=== PATIENT | female | born 1945 | race Caucasian/White ===

== ENCOUNTER → 2017-03-27 | Outpatient (CLI) | payer OTHER, MEDICAID ==
[~2017-03-27] MED LIST: OMNIPAQUE 350 MG/ML, 100ML BOTTLE ONE
== END | disposition home or self-care (01) ==
LOC: CFH 11:31
PROVIDERS: ATTEND Internal Medicine
DX: I70.0 Atherosclerosis of aorta (principal); R10.10 Upper abdominal pain, unspecified
CPT/HCPCS: 74177; Q9967

== ENCOUNTER 2017-07-01 15:14 | Emergency (ER) | payer OTHER, MEDICAID ==
[~2017-07-01] VITALS: Ht 170.2 cm; Wt 79.0 kg
[2017-07-01] MEDS ORDERED: SODIUM CHLORIDE 0.9% 1,000 ML IV ONE (15:38)
[2017-07-01] MEDS ORDERED: MORPHINE SULFATE 4 MG/ML, 1ML ONE (15:53)
[2017-07-01] MEDS ORDERED: ONDANSETRON 2MG/ML, 2ML ONE (15:54)
[2017-07-01] MEDS ORDERED: ONDANSETRON 2MG/ML, 2ML IVPush ONE (16:00)
[2017-07-01] MEDS ORDERED: MORPHINE SULFATE 4 MG/ML, 1ML IVPush PRN (16:00)
[2017-07-01] MEDS ORDERED: SODIUM CHLORIDE FLUSH 10ML SYR IVF ONE (16:00)
[2017-07-01] MEDS ORDERED: SODIUM CHLORIDE 0.9% 1,000ML IVBOLUS ONE (16:00)
[2017-07-01 16:22] LABS: BASOPHILS # (AUTO) 0.02 x10^3/uL (0-0.1); BASOPHILS % (AUTO) 0 % (0-1); EOSINOPHILS # (AUTO) 0.24 x10^3/uL (0-0.4); EOSINOPHILS % (AUTO) 3 % (1-7); LYMPHOCYTES # (AUTO) 1.83 x10^3/uL (1-3.4); LYMPHOCYTES % (AUTO) 25 % (22-44); MD NO; MEAN CORPUSCULAR HEMOGLOBIN 30.8 pg (27.0-34.8); MEAN CORPUSCULAR HGB CONC 32.8 g/dL (32.4-35.8); MEAN CORPUSCULAR VOLUME 94.2 fL (80-100); MEAN PLATELET VOLUME 11.8 fL (7.4-10.4); MONOCYTES # (AUTO) 0.84 x10^3/uL (0.2-0.8); MONOCYTES % (AUTO) 11 % (2-9); NEUTROPHILS # (AUTO) 4.52 x10^3/uL (1.8-6.8); NEUTROPHILS % (AUTO) 61 % (42-75); PLATELET COUNT 183 x10^3/uL (130-400); RED BLOOD COUNT 4.92 x10^6/uL (3.82-5.3); RED CELL DISTRIBUTION WIDTH 15.4 % (9.6-15.2)
[2017-07-01 16:32] LABS: ALANINE AMINOTRANSFERASE 15 U/L (12-78); ALBUMIN 3.4 g/dL (3.4-5.0); ANION GAP 8 mmol/L (5-15); CALCIUM 8.4 mg/dL (8.5-10.1); CHLORIDE 107 mmol/L (98-107); CREATININE 1.13 mg/dL (0.55-1.02)
[2017-07-01 16:34] LABS: SALICYLATE LEVEL < 1.7 mg/dL (2.8-20.0)
[2017-07-01 16:37] LABS: ALKALINE PHOSPHATASE 76 U/L (45-117); BILIRUBIN,TOTAL 0.3 mg/dL (0.2-1.0); TOTAL PROTEIN 7.1 g/dL (6.4-8.2); TROPONIN I < 0.015 ng/mL (0.000-0.045)
[2017-07-01 16:38] LABS: ACETAMINOPHEN < 2 mcg/mL (10-30)
[2017-07-01 16:40] LABS: MICROSCOPIC NOT IND
[2017-07-01 16:42] LABS: CULTURE INDICATED? NO
[2017-07-01 18:41] VITALS: BP 101/61
== END 2017-07-01 18:48 | disposition home or self-care (01) ==
LOC: ED 16:55
DX: E86.0 Dehydration (principal); N93.8 Other specified abnormal uterine and vaginal bleeding; F11.20 Opioid dependence, uncomplicated; N95.9 Unspecified menopausal and perimenopausal disorder
CPT/HCPCS: 36415; 70450; 71045; 80053; 80307; 80329; 81003; 82140; 83605; 84484; 85025; 93005; 96361; 96374; 96375; 99285; J2405; J7030; G0480

== ENCOUNTER → 2017-10-27 | Outpatient (CLI) | payer OTHER, MEDICAID | END | disposition home or self-care (01) | LOC: CFH 11:56 | PROVIDERS: ATTEND Internal Medicine | DX: M51.36 Other intervertebral disc degeneration, lumbar region (principal) | CPT/HCPCS: 72110 ==

== ENCOUNTER 2018-06-02 16:13 | Emergency (ER) | payer MEDICARE, MEDICAID ==
[~2018-06-02] VITALS: Ht 170.2 cm; Wt 82.0 kg
--- NOTE | 2018-06-02 16:42 | NUR ---
PT ROOMED, THEN TO X RAY, WILL ASSESES WHEN X RAY COMPLETE
--- NOTE | 2018-06-02 16:55 | NUR ---
PT REPORTS FALLING WHILE USING HER WALKER THE OTHER DAY. FELL ONTO [place] FLOOR. ABLE TO AMBULATE WITH DIFFICULTY AND PAIN SINCE FALL. DENIES LOC, HX OF MANY BACK SURGERIES.
--- NOTE | 2018-06-02 17:00 | NUR ---
PT STATES SHE RECENTLY DC'D HER METFORMIN, "BECAUSE I WAS DOING PRETTY WELL"
--- NOTE | 2018-06-02 17:25 | NUR ---
IN FOR RECHECK.
[2018-06-02 18:09] VITALS: BP 122/65
== END 2018-06-02 18:11 | disposition home or self-care (01) ==
LOC: ED 17:38
DX: S30.0XXA Contusion of lower back and pelvis, initial encounter (principal); Z86.39 Personal history of other endocrine, nutritional and metabolic disease; W01.0XXA Fall on same level from slipping, tripping and stumbling without subsequent striking against object, initial encounter; Y93.89 Activity, other specified; Y92.009 Unspecified place in unspecified non-institutional (private) residence as the place of occurrence of the external cause; Y99.8 Other external cause status
CPT/HCPCS: 72110; 72220; 99283

== ENCOUNTER 2018-12-18 14:52 | Inpatient (IN) | payer MEDICARE, MEDICAID ==
[~2018-12-18] VITALS: Ht 170.2 cm; Wt 80.5 kg
[2018-12-25 13:27] VITALS: BP 119/81
== END 2018-12-25 19:19 | DRG 917 ==
LOC: ED 16:17 → EDIP 17:19 → CCU 21:14 → 4EST 12-20 18:14 → UNDODISIN 12-24 15:15
PROVIDERS: ADMIT Internal Medicine; ATTEND Internal Medicine
PROC: 0T9B70Z Drainage of Bladder with Drainage Device, Via Natural or Artificial Opening (ICD-10-PCS; principal; 2018-12-18)
PROC: 0BH17EZ Insertion of Endotracheal Airway into Trachea, Via Natural or Artificial Opening (ICD-10-PCS; 2018-12-18)
PROC: 5A1945Z Respiratory Ventilation, 24-96 Consecutive Hours (ICD-10-PCS; 2018-12-18)
DX: T40.4X1A Poisoning by other synthetic narcotics, accidental (unintentional), initial encounter (principal); G92 Toxic encephalopathy; J96.00 Acute respiratory failure, unspecified whether with hypoxia or hypercapnia; E87.0 Hyperosmolality and hypernatremia; Y92.89 Other specified places as the place of occurrence of the external cause; D72.829 Elevated white blood cell count, unspecified; E03.9 Hypothyroidism, unspecified; E11.9 Type 2 diabetes mellitus without complications; E78.00 Pure hypercholesterolemia, unspecified; E78.5 Hyperlipidemia, unspecified; E83.42 Hypomagnesemia; E86.0 Dehydration; E87.6 Hypokalemia; F32.9 Major depressive disorder, single episode, unspecified; F41.9 Anxiety disorder, unspecified; G89.29 Other chronic pain; I10 Essential (primary) hypertension; I45.10 Unspecified right bundle-branch block; L90.0 Lichen sclerosus et atrophicus; R56.9 Unspecified convulsions; Z79.899 Other long term (current) drug therapy; I25.2 Old myocardial infarction
CPT/HCPCS: 36415; 36600; 70450; 71045; 80048; 80053; 80307; 81003; 82010; 82140; 82803; 82962; 83605; 83690; 83735; 84443; 84478; 84481; 85025; 87070; 87077; 87081; 87186; 87205; 93005; 94002; 94003; 94150; 94640; 96365; 96375; G0378; J0295; J1650; J1953; J2310; J2704; J3010; J7620; Q0162; C9113; J0360; J2060; J3475; J3490; J7030; Q0163

== ENCOUNTER → 2019-03-31 | Outpatient (CLI) | payer MEDICARE, MEDICAID ==
[~2019-03-31] MED LIST changes: +ALPR1TAB2 PO; +ATOR20TA37 PO; +CLOB15CR19 TP; +ESTR0.6246 PO; +ESTR30CR TP; +LEVO112T4 PO; +LEVO500T47 PO; +MAGN400T36 PO; +NITR100C6 PO; -OMNIPAQUE 350 MG/ML, 100ML BOTTLE ONE; +OXYC10TA6 PO; +POLY17PO5 PO; +PREG75CA PO; +PROP40TA PO; +VENL75CA PO; +myrbetriq MT
== END | disposition home or self-care (01) ==
LOC: RAD 09:23
PROVIDERS: ATTEND Internal Medicine Gastroenterology
DX: Z12.11 Encounter for screening for malignant neoplasm of colon (principal); R13.19 Other dysphagia; K59.00 Constipation, unspecified; J44.9 Chronic obstructive pulmonary disease, unspecified; E11.9 Type 2 diabetes mellitus without complications; F11.10 Opioid abuse, uncomplicated; Z88.2 Allergy status to sulfonamides; Z91.013 Allergy to seafood; Z87.891 Personal history of nicotine dependence
CPT/HCPCS: 74230